=== PATIENT | male | born 1950 | race Caucasian/White ===

== ENCOUNTER 2020-09-08 13:51 | Outpatient (CLI) | payer MEDICARE, OTHER, SELFPAY ==
--- NOTE | ~2020-09-08 | DEXA_ITS ---
Bone Density Report Name: Collin Ward Age: 70 Sex: Male Ethnicity: White Date of : 1950 Indication: height loss; Referring Provider: Saulo Perkins Study: Bone densitometry was performed. Exam Date: September 08, 2020 Accession number: [id number] Bone Density: Region BMD T-score Z-score Classification Total Forearm (Right) 0.635 -0.8 0.2 1/3 Forearm (Right) 0.781 -0.8 0.4 UD Forearm (Right) 0.629 2.1 3.2 World Health Organization criteria for BMD impression classify patients as: Normal (T-score at or above -1.0), Osteopenia (T-score between -1.0 and -2.5), or Osteoporosis (T-score at or below -2.5). Clinical Information Provided by Patient: Has used the following medications: Vitamin D, Calcium Patient maximum height was 72 No regular weight bearing exercise Drinks caffeinated beverages Impression: The patient has normal bone mass. Discussion: BONE DENSITY IS ABOVE THE MINIMUM DESIRABLE LEVEL AT ALL SKELETAL SITES TESTED. This patient?s bone mineral density is above the minimum desirable level (T-score -1.0 or better) at all sites measured. The patient should follow a healthful lifestyle (good nutrition with adequate calcium and vitamin D, and appropriate weight-bearing exercise). Follow-Up: Consider repeating this study in 5 years or sooner if there is some new clinical indication. Reported by: [facility] on 09/08/2020 2:23:00 PM. Reviewed, dictated and finalized at location Dimitrios MOFFETT
--- NOTE | ~2020-09-08 | DEXA_ITS ---
Bone Density Report Name: Collin Ward Age: 70 Sex: Male Ethnicity: White Date of : 1950 Indication: height loss; Referring Provider: Saulo Perkins Study: Bone densitometry was performed. Exam Date: September 08, 2020 Accession number: [id number] Bone Density: Region BMD T-score Z-score Classification AP Spine (L3, L4) 1.302 1.6 2.5 Normal Femoral Neck (Left) 0.843 -0.6 0.5 Normal Total Hip (Left) 1.033 0.0 0.6 Normal Total Hip Bilateral Avg 1.092 0.4 1.0 Normal Femoral Neck (Right) 1.018 0.6 1.8 Normal Total Hip (Right) 1.150 0.8 1.4 Normal World Health Organization criteria for BMD impression classify patients as: Normal (T-score at or above -1.0), Osteopenia (T-score between -1.0 and -2.5), or Osteoporosis (T-score at or below -2.5). 10-year Fracture Risk: FRAX not reported because: All T-scores for Spine Total, Hip Total, Femoral Neck at or above -1.0 Clinical Information Provided by Patient: Has used the following medications: Vitamin D, Calcium Patient maximum height was 72 No regular weight bearing exercise Drinks caffeinated beverages Impression: The patient has normal bone mass. Discussion: BONE DENSITY IS ABOVE THE MINIMUM DESIRABLE LEVEL AT ALL SKELETAL SITES TESTED. This patient?s bone mineral density is above the minimum desirable level (T-score -1.0 or better) at all sites measured. The patient should follow a healthful lifestyle (good nutrition with adequate calcium and vitamin D, and appropriate weight-bearing exercise). Follow-Up: Consider repeating this study in 5 years or sooner if there is some new clinical indication. Reported by: [facility] on 09/08/2020 2:14:00 PM. Reviewed, dictated and finalized at location AJ Luis MOFFETT
== END 2020-09-08 13:52 | disposition home or self-care (01) ==
DX: E55.9 Vitamin D deficiency, unspecified (principal); M80.88XA Other osteoporosis with current pathological fracture, vertebra(e), initial encounter for fracture
CPT/HCPCS: 77080; 77081

== ENCOUNTER 2021-07-18 00:47 | Day surgery (SDC) | payer MEDICARE, SELFPAY ==
[2021-07-05 10:03] VITALS: BMI 25.8
--- NOTE | 2021-07-18 07:31 | PM.HPGS ---
History of Present Illness History of Present Illness Consent: Risks, benefits, and alternatives have been discussed and questions answered. Patient agrees to proceed with procedure. Chief complaint: neoplasm screening Narrative: Collin Ward is a 71 year old male Referred for colon cancer screening. It has been 10 years since his last colonoscopy. Review of Systems Review of Systems: All systems reviewed & are unremarkable except as noted in HPI and below PMFSH Past Medical History Medical History (Updated 07/18/21 @ 07:31 by Sha Sherman MD) Diabetes Hypercholesterolemia Family History Family History (Updated 12/08/14 @ 16:03 by DOCTOR UNKNOWN) Father Acute myocardial infarction Grandparent Acute myocardial infarction Social History Social History Smoking status: Never smoker Alcohol intake: current Drinks per week: 14 Living arrangements: with family Gender identity (if verbalized by the patient): Male Spiritual care concerns: No Meds Home Medications and Allergies Home Medications Medication Instructions Recorded Confirmed Type atorvastatin 20 mg tablet 20 mg PO DAILY 02/11/19 07/18/21 History insulin glargine 100 unit/mL (3 17 unit subcut DAILY 02/11/19 07/18/21 History mL) subcutaneous pen (Lantus Solostar U-100 Insulin) insulin lispro 100 unit/mL 5 - 15 sliding scale dose subcut 02/11/19 07/18/21 History subcutaneous cartridge (Humalog TID U-100 Insulin) Zn-pyg [id number] palmet 1 cap PO DAILY 07/05/21 07/18/21 History capsule azelastine 205.5 mcg (0.15 %) 2 spray intranasal BID 07/05/21 07/18/21 History nasal spray doxazosin 2 mg tablet 2 mg PO DAILY 07/05/21 07/18/21 History irbesartan 150 mg tablet 150 mg PO DAILY 07/05/21 07/18/21 History levothyroxine 137 mcg tablet 137 mcg PO DAILY 07/05/21 07/18/21 History multivitamin with minerals-folic 1 tablet PO DAILY 07/05/21 07/18/21 History acid 0.4 mg tablet potassium chloride 10 mEq 10 meq PO DAILY 07/05/21 07/18/21 History tablet,extended release Allergies Allergy/AdvReac Type Severity Reaction Status Date / Time celecoxib Allergy Unknown Rash Verified 07/18/21 08:28 Exam Resp: Auscultation: clear to auscultation bilaterally Cardio: Rate: regular rate Rhythm: regular rhythm GI: GI Palp: Yes Soft to palpation and No Tenderness to palpation present (GI) Assessment and Plan Assessment and plan (1) Colon cancer screening: Code(s): Z12.11 - Encounter for screening for malignant neoplasm of colon Status: Acute Plan Colonoscopy with possible biopsy or polypectomy or cautery or injection of substances.
[2021-07-18 08:29] LABS: Glucose Point of Care 106 mg/dl (65-105)
[2021-07-18 08:31] VITALS: BP 160/85; PULSE 73; RESP 17; O2SAT 100
[2021-07-18] MEDS: LACTATED RINGERS 1,000 ML 150 ML IV CONT (08:40)
--- NOTE | 2021-07-18 09:16 | WPDANESEPPF ---
Anes - Initial Pre Proc Eval Procedure: Operation Date: 07/18/21 09:30 Proposed Procedures p Screening Colonoscopy - Sha Sherman MD Date/Time: 07/18/21 09:16 Surgeon: Sha Sherman MD Pre Op Diagnosis: neoplasm screening Patient Data Age: 71 Gender: M Height: 1.8 m Weight: 83.7 kg Last Vital Signs Pulse 73 07/18/21 08:31 Resp 17 07/18/21 08:31 BP 160/85 H 07/18/21 08:31 Pulse Ox 100 07/18/21 08:31 O2 Del Method Room Air 07/18/21 08:31 Allergies Allergy/AdvReac Type Severity Reaction Status Date / Time celecoxib Allergy Unknown Rash Verified 07/18/21 08:28 Home Medications Medication Instructions Recorded Confirmed Type atorvastatin 20 mg tablet 20 mg PO DAILY 02/11/19 07/18/21 History insulin glargine 100 unit/mL (3 17 unit subcut DAILY 02/11/19 07/18/21 History mL) subcutaneous pen (Lantus Solostar U-100 Insulin) insulin lispro 100 unit/mL 5 - 15 sliding scale dose subcut 02/11/19 07/18/21 History subcutaneous cartridge (Humalog TID U-100 Insulin) Zn-pyg cexp-ydlcar-ewi palmet 1 cap PO DAILY 07/05/21 07/18/21 History capsule azelastine 205.5 mcg (0.15 %) 2 spray intranasal BID 07/05/21 07/18/21 History nasal spray doxazosin 2 mg tablet 2 mg PO DAILY 07/05/21 07/18/21 History irbesartan 150 mg tablet 150 mg PO DAILY 07/05/21 07/18/21 History levothyroxine 137 mcg tablet 137 mcg PO DAILY 07/05/21 07/18/21 History multivitamin with minerals-folic 1 tablet PO DAILY 07/05/21 07/18/21 History acid 0.4 mg tablet potassium chloride 10 mEq 10 meq PO DAILY 07/05/21 07/18/21 History tablet,extended release Laboratory Tests 07/18/21 08:25 POC Capillary Glucose 106 mg/dl H mg/dl (65-105) Patient hx anesthesia problems: none Family hx anesthesia problems: none Results Review: All pre-operative results and documents have been reviewed as part of the pre-operative evaluation. [facility] Past Medical History Medical History (Updated 07/18/21 @ 07:31 by Sha Sherman MD) Diabetes Hypercholesterolemia Family History Family History (Updated 12/08/14 @ 16:03 by DOCTOR UNKNOWN) Father Acute myocardial infarction Grandparent Acute myocardial infarction Social History Social History Smoking status: Never smoker Alcohol intake: current Drinks per week: 14 Living arrangements: with family Gender identity (if verbalized by the patient): Male Spiritual care concerns: No Anes - Eval Final PreProcedure Day of Procedure 07/18/21 09:16 Patient weight: overweight Heart: regular rate and rhythm Lungs: clear to auscultation Airway: Mallampati scale class II Neurological: alert and oriented Last oral intake: >/= 8 hours ASA classification: III Emergent: no Anesthetic plan: proceed Anesthesia type and monitoring: general GIVS and standard monitoring Results Review: All pre-operative results and documents have been reviewed as part of the pre-operative evaluation. Informed Consent: The patient's anesthetic plan and its attendant risks and benefits were discussed with the patient/family/POA. Questions were solicited and answers provided to the satisfaction of the patient/family/POA.
[2021-07-18 09:48] VITALS: BP 114/68; PULSE 75; RESP 19; O2SAT 98
[2021-07-18 10:06] LABS: Glucose Point of Care 105 mg/dl (65-105)
[2021-07-18 10:08] VITALS: BP 115/64; PULSE 68; RESP 22; O2SAT 100
[2021-07-18 10:18] VITALS: BP 132/81; PULSE 66; RESP 20; O2SAT 100
== END 2021-07-18 10:40 | disposition home or self-care (01) ==
PROVIDERS: Visit Provider Internal Medicine Gastroenterology
PROC: 0DJD8ZZ Inspection of Lower Intestinal Tract, Via Natural or Artificial Opening Endoscopic (ICD-10-PCS; CPT 45378; principal; 2021-07-18 09:30)
DX: Z12.11 Encounter for screening for malignant neoplasm of colon (principal); E11.9 Type 2 diabetes mellitus without complications; E78.00 Pure hypercholesterolemia, unspecified; K57.30 Diverticulosis of large intestine without perforation or abscess without bleeding
CPT/HCPCS: G0121; 82948; J2704; J7120

== ENCOUNTER 2023-05-08 11:11 | Outpatient (CLI) | payer MEDICARE, SELFPAY ==
--- NOTE | ~2023-05-08 | CT_ITS ---
EXAMINATION: CT sinus wo con DATE: 05/08/2023 11:31 INDICATION: Chronic sinusitis TECHNIQUE: Computed tomography (CT) of the paranasal sinuses was performed without intravenous contra st. The dose-length product was 420.49 mGy-cm. Automated exposure control and iterative reconstructio n technique were employed. COMPARISON: None FINDINGS: There is mucosal thickening of the maxillary and ethmoid sinuses. No air-fluid levels. Left mcintosh nasal septal deviation. Ostiomeatal units are patent. Mastoids are pneumatized. IMPRESSION: 1. Mild sinus disease. Reviewed, dictated and finalized at location A. IMPRESSION: 1. Mild sinus disease.
== END 2023-05-08 11:12 ==
LOC: GOSHIMG 11:13
PROVIDERS: Visit Provider Otolaryngology
DX: J32.9 Chronic sinusitis, unspecified (principal)
CPT/HCPCS: 70486